=== PATIENT | female | born 1990 | race Caucasian/White ===

== ENCOUNTER → 2021-04-17 | Outpatient (CLI) | payer BC ==
--- NOTE | 2021-04-17 15:19 | MR ---
EXAMINATION TYPE: MR knee RT wo con DATE OF EXAM: 04/17/2021 COMPARISON: HISTORY: Right knee pain, painful kneecap, and swelling for 1 year due to slamming knee. TECHNIQUE: Multiplanar, multisequence imaging of the right knee is performed without IV contrast. FINDINGS: There is a heterogeneous marrow signal within the distal femur and proximal tibia which is nonspecific. Appears to be a small soft tissue nodule likely related to lymph node posterior to the d istal diaphysis of the femur measuring a short axis of 7 mm. The ACL and PCL intact. Medial collateral and lateral collateral ligaments appear intact. No diagnostic evidence of lateral meniscal tear. There is intrasubstance signal posterior horn medial meniscus most typical of myxoid degeneration. Subtle tear not excluded. There is no sizable fluid collection within the suprapatellar bursa. Although exam is limited by gina on artifact there does appear to be thinning of the patellar cartilage correlate for chondromalacia. The insertion of the quadriceps tendon upon the upper margin of the patella there is increased signal which could be on the basis of quadriceps tendinosis. Partial intrasubstance tear not excluded. No s izable popliteal fossa fluid collection. IMPRESSION: 1. Exam limited due to motion artifact. There appears to be increased signal at the insertion of the quadriceps tendon upon the upper margin of the patella correlate for quadriceps tendinosis or partial intrasubstance tear. No retraction. 2. Heterogeneous marrow signal. Findings nonspecific. Differential diagnosis could include marrow rec onversion, correlate clinically to exclude blood dyscrasia or lymphoproliferative disorder. 3. Patellar chondromalacia. 4. Mucoid degeneration favored over subtle linear tear posterior horn medial meniscus correlate clini lizandro.
== END | disposition home or self-care (01) ==
LOC: RADMRIMAIN 09:02
PROVIDERS: ATTEND Family Medicine
DX: M22.41 Chondromalacia patellae, right knee (principal)

== ENCOUNTER → 2021-10-18 | Outpatient (CLI) | payer BC ==
--- NOTE | 2021-10-18 17:12 | XR ---
PROCEDURE: XR lumbar spine - 3V DATE AND TIME: 10/18/2021 4:30 PM CLINICAL INDICATION: PHH; M54.16 RADICULOPATHY, LUMBAR REGION TECHNIQUE: Department protocol COMPARISON: None FINDINGS: There is no fracture or malalignment. The soft tissues are unremarkable. IMPRESSION: NO ACUTE PROCESS.
== END | disposition home or self-care (01) ==
LOC: RADXRMAIN 16:16
PROVIDERS: ATTEND Family Medicine
DX: M54.16 Radiculopathy, lumbar region (principal)
CPT/HCPCS: 72100